=== PATIENT | male | born 1990 | race African-American/Black ===

== ENCOUNTER 2024-04-04 07:58 | Emergency (ER) | payer SELFPAY ==
[~2024-04-04] VITALS: Ht 190.5 cm; Wt 95.3 kg
[2024-04-04 08:04] VITALS: BP 128/88; PULSE 89; RESP 18; TEMP 98; O2SAT 99
[2024-04-04] MEDS: BACITRACIN OINT 500 UNITS/GM PKT TP ONE (09:27)
[2024-04-04 09:32] VITALS: BP 128/88; PULSE 89; RESP 18; TEMP 98; O2SAT 99
== END 2024-04-04 09:28 ==
LOC: MED 07:58
DX: S80.212A Abrasion, left knee, initial encounter (principal); S00.81XA Abrasion of other part of head, initial encounter; S60.512A Abrasion of left hand, initial encounter; S60.511A Abrasion of right hand, initial encounter; S09.90XA Unspecified injury of head, initial encounter; V49.9XXA Car occupant (driver) (passenger) injured in unspecified traffic accident, initial encounter; Y93.89 Activity, other specified; Y92.89 Other specified places as the place of occurrence of the external cause; Y99.8 Other external cause status
CPT/HCPCS: 70450; 99284